=== PATIENT | male | born 1970 | race Caucasian/White ===

== ENCOUNTER 2017-02-13 21:41 | Emergency (ER) | payer SELFPAY ==
[~2017-02-13] VITALS: Ht 188 cm; Wt 149.7 kg
[~2017-02-13 21:41] MED LIST: RANI150T12 PO
[2017-02-13 22:07] VITALS: BP 137/80
--- NOTE | 2017-02-13 22:52 | NUR ---
INFORMED BY ADMITTING "PT LEFT".
== END 2017-02-13 22:53 | disposition left against medical advice (07) ==
LOC: ER 21:45
DX: Z53.21 Procedure and treatment not carried out due to patient leaving prior to being seen by health care provider (principal)
CPT/HCPCS: A4606; Z7610